=== PATIENT | female | born 1990 | race Caucasian/White ===

== ENCOUNTER 2016-09-05 14:58 | Emergency (ER) | payer MEDICAID ==
[~2016-09-05] VITALS: Ht 149.9 cm; Wt 76.0 kg
[~2016-09-05 14:58] MED LIST: IBUP-1222 PO; OXYC-302 PO
[2016-09-05] MEDS ORDERED: SODIUM CHLORIDE FLUSH 10ML SYR IVF ONE (15:30)
[2016-09-05] MEDS ORDERED: HYDROmorphone 1 MG/ML, 1ML IV ONE (15:30)
[2016-09-05] MEDS ORDERED: SODIUM CHLORIDE 0.9% 1,000ML IVBOLUS ONE (15:30)
[2016-09-05] MEDS ORDERED: ONDANSETRON 2MG/ML, 2ML IVPush ONE (15:30)
[2016-09-05] MEDS ORDERED: HYDROmorphone 1 MG/ML, 1ML ONE (16:20)
[2016-09-05] MEDS ORDERED: ONDANSETRON 2MG/ML, 2ML ONE (16:20)
[2016-09-05 16:40] LABS: BLOOD UREA NITROGEN 9 mg/dL (7-18)
[2016-09-05 18:16] VITALS: BP 110/61
== END 2016-09-05 18:41 | disposition home or self-care (01) ==
LOC: ED 18:20
DX: N83.291 Other ovarian cyst, right side (principal); Z88.6 Allergy status to analgesic agent
CPT/HCPCS: 36415; 76830; 80048; 81003; 82040; 84703; 85025; 96361; 96374; 96375; 99285; J1170; J2405; J7030

== ENCOUNTER 2017-02-18 19:33 | Emergency (ER) | payer MEDICAID ==
[~2017-02-18] VITALS: Ht 149.9 cm; Wt 76.4 kg
[2017-02-18 20:27] LABS: HEMATOCRIT 38.8 % (34.6-47.8); HEMOGLOBIN 13.2 g/dL (11.7-16.4); WHITE BLOOD COUNT 8.9 x10^3/uL (3.4-10)
[2017-02-18] MEDS ORDERED: PROMETHAZINE 25 MG/ML, 1ML IM ONE (20:30)
[2017-02-18] MEDS ORDERED: SODIUM CHLORIDE FLUSH 10ML SYR IVF ONE (20:30)
[2017-02-18] MEDS ORDERED: SODIUM CHLORIDE 0.9% 1,000ML IVBOLUS ONE (20:30)
[2017-02-18 20:33] LABS: ASPARTATE AMINO TRANSFERASE 13 U/L (15-37); BLOOD UREA NITROGEN 7 mg/dL (7-18)
[2017-02-18] MEDS ORDERED: PROMETHAZINE 25 MG/ML, 1ML ONE (20:46)
[2017-02-18 21:44] VITALS: BP 96/68
== END 2017-02-18 22:16 | disposition home or self-care (01) ==
LOC: ED 22:15
DX: O26.891 Other specified pregnancy related conditions, first trimester (principal); O21.0 Mild hyperemesis gravidarum; Z3A.01 Less than 8 weeks gestation of pregnancy
CPT/HCPCS: 36415; 80053; 85025; 96360; 96372; 99284; J2550; J7030

== ENCOUNTER 2017-02-23 00:54 | Emergency (ER) | payer MEDICAID ==
[~2017-02-23] VITALS: Ht 149.9 cm; Wt 76.9 kg
[2017-02-23 00:55] VITALS: BP 112/73
[2017-02-23] MEDS ORDERED: HYDROcodone/APAP 5/325 TABLET PO ONE (02:00)
[2017-02-23] MEDS ORDERED: KETOROLAC 30 MG/1 ML IM ONE (02:00)
[2017-02-23] MEDS ORDERED: HYDROcodone/APAP 5/325 TABLET ONE (02:05)
[2017-02-23] MEDS ORDERED: KETOROLAC 30 MG/1 ML ONE (02:05)
== END 2017-02-23 02:24 | disposition home or self-care (01) ==
LOC: ED 01:35
DX: K08.89 Other specified disorders of teeth and supporting structures (principal); Z87.891 Personal history of nicotine dependence
CPT/HCPCS: 96372; 99283; J1885

== ENCOUNTER 2017-02-26 17:38 | Emergency (ER) | payer MEDICAID ==
[~2017-02-26] VITALS: Ht 149.9 cm; Wt 75.3 kg
[2017-02-26 17:52] VITALS: BP 119/82
== END 2017-02-26 19:09 | disposition home or self-care (01) ==
LOC: ED 18:45
DX: K02.9 Dental caries, unspecified (principal); Z90.49 Acquired absence of other specified parts of digestive tract
CPT/HCPCS: 99283

== ENCOUNTER 2019-04-01 16:28 | Emergency (ER) | payer MEDICAID, OTHER ==
[~2019-04-01] VITALS: Ht 149.9 cm; Wt 83.9 kg
--- NOTE | 2019-04-01 16:54 | NUR ---
THIS IS A 28 YO F W/ C/O BODYACHES, FEVER, COUGH, DIARRHEA X2 DAYS. PATIENTS RESPIRATIONS ARE EVEN AND UNLABORED. PATIENT IS IN NO ACUTE DISTRESS. DENIES FURTHER NEEDS AT THIS TIME. CALL LIGHT IN REACH.
[2019-04-01] MEDS ORDERED: SODIUM CHLORIDE 0.9% 1,000 ML IV ONE (16:55)
[2019-04-01] MEDS ORDERED: ONDANSETRON 2MG/ML, 2ML IVPush ONE (17:00)
[2019-04-01] MEDS ORDERED: SODIUM CHLORIDE 0.9% 1,000ML IVBOLUS ONE (17:00)
[2019-04-01] MEDS ORDERED: SODIUM CHLORIDE FLUSH 10ML SYR IVF ONE (17:00)
--- NOTE | 2019-04-01 17:16 | NUR ---
PIV STARTED, LABS DRAWN, 1L NS STARTED PER EMAR. PATIENT RESTING ON GURNEY DENIES FURTHER NEEDS AT THIS TIME.
[2019-04-01 17:23] LABS: BASOPHILS # (AUTO) 0.01 x10^3/uL (0-0.1); BASOPHILS % (AUTO) 0 % (0-1); EOSINOPHILS # (AUTO) 0.04 x10^3/uL (0-0.4); EOSINOPHILS % (AUTO) 1 % (1-7); LYMPHOCYTES % (AUTO) 34 % (22-44); MD NO; MEAN CORPUSCULAR HEMOGLOBIN 30.7 pg (27.0-34.8); MEAN CORPUSCULAR VOLUME 90.3 fL (80-100); MEAN PLATELET VOLUME 8.5 fL (7.4-10.4); MONOCYTES % (AUTO) 8 % (2-9); NEUTROPHILS # (AUTO) 2.69 x10^3/uL (1.8-6.8); NEUTROPHILS % (AUTO) 57 % (42-75); PLATELET COUNT 196 x10^3/uL (130-400); RED BLOOD COUNT 4.89 x10^6/uL (3.82-5.3); RED CELL DISTRIBUTION WIDTH 12.7 % (9.6-15.2)
--- NOTE | 2019-04-01 17:25 | NUR ---
PATIENT DENIES NAUSEA. DOES NOT WANT ZOFRAN AT THIS TIME.
[2019-04-01 17:34] LABS: ALANINE AMINOTRANSFERASE 50 U/L (12-78); ANION GAP 6 mmol/L (5-15); CALCIUM 8.8 mg/dL (8.5-10.1); CHLORIDE 107 mmol/L (98-107)
[2019-04-01 17:36] LABS: ALKALINE PHOSPHATASE 99 U/L (45-117); BILIRUBIN,TOTAL 0.3 mg/dL (0.2-1.0); TOTAL PROTEIN 7.9 g/dL (6.4-8.2)
[2019-04-01 17:49] LABS: RAPID INFLUENZA A Negative (Negative); RAPID INFLUENZA B POSITIVE (Negative)
--- NOTE | 2019-04-01 18:17 | NUR ---
URINE COLLECTED AND SENT TO LAB. PT ATTEMPTED TO ALSO PROVIDE STOOL, HOWEVER, URINE WAS MIXED IN WITH A STOOL SAMPLE, WHICH WAS A VERY SCANT AMOUNT OF BLOOD MEASURING APPROX. 1/8 TEASPOON.
[2019-04-01 18:59] LABS: MICROSCOPIC NOT IND
--- NOTE | 2019-04-01 19:07 | NUR ---
REPORT FROM [facility]Z RN'S. PT PROVIDED BEDSIDE CAMMODE FOR STOOL SAMPLE.
[2019-04-01 19:16] LABS: CULTURE INDICATED? NO
--- NOTE | 2019-04-01 19:30 | NUR ---
STOOL COLLECTED AND WALKED TO THE LAB
[2019-04-01 19:56] VITALS: BP 120/76
--- NOTE | 2019-04-01 20:21 | NUR ---
Ashely auguste in ED - 04/01/19 at 2020 by DAVIS PT FOR RECHECK BY ERP
[2019-04-01 20:47] LABS: CLOSTRIDIUM DIFFICILE ANTIGEN NEGATIVE; CLOSTRIDIUM DIFFICILE TOXIN NEGATIVE (Negative)
== END 2019-04-01 20:35 | disposition home or self-care (01) ==
LOC: ED 20:15
DX: J10.1 Influenza due to other identified influenza virus with other respiratory manifestations (principal); K52.9 Noninfective gastroenteritis and colitis, unspecified; R11.2 Nausea with vomiting, unspecified; F17.200 Nicotine dependence, unspecified, uncomplicated
CPT/HCPCS: 36415; 80053; 81003; 85025; 87324; 87400; 89055; 96360; 96361; 99283; J7030

== ENCOUNTER 2019-10-16 19:24 | Emergency (ER) | payer MEDICAID ==
[~2019-10-16] VITALS: Ht 149.9 cm; Wt 91.0 kg
[2019-10-16 19:31] VITALS: BP 129/80
== END 2019-10-16 20:13 | disposition home or self-care (01) ==
LOC: ED 19:35
DX: K02.9 Dental caries, unspecified (principal)
CPT/HCPCS: 99283

== ENCOUNTER 2020-01-28 11:23 | Emergency (ER) | payer MEDICAID ==
[~2020-01-28] VITALS: Ht 149.9 cm; Wt 88.2 kg
[2020-01-28 12:37] LABS: BASOPHILS % (AUTO) 0 % (0-1); EOSINOPHILS % (AUTO) 2 % (1-7); LYMPHOCYTES % (AUTO) 28 % (22-44); MEAN CORPUSCULAR HEMOGLOBIN 30.5 pg (27.0-34.8); MEAN CORPUSCULAR HGB CONC 33.8 g/dL (32.4-35.8); MEAN PLATELET VOLUME 8.3 fL (7.4-10.4); MONOCYTES % (AUTO) 5 % (2-9); NEUTROPHILS % (AUTO) 65 % (42-75); PLATELET COUNT 289 x10^3/uL (130-400); RED BLOOD COUNT 5.11 x10^6/uL (3.82-5.3); RED CELL DISTRIBUTION WIDTH 12.6 % (9.6-15.2)
--- NOTE | 2020-01-28 12:37 | NUR ---
PT PRESENTS TO ED WITH C/O MIRACLE BLOOD PER RECTUM WITH BM THIS AM, ONLY ONCE. NO BLEEDING NOW. PT IS A&O, RESPS EVEN AND UNLABORED, NADN. PT INSTRUCTED TO PROVIDE CLEAN CATCH URINE, AMBULATORY TO BATHROOM WITH STEADY GAIT.
[2020-01-28 12:40] VITALS: BP 124/86
[2020-01-28 12:41] LABS: ANION GAP 6 mmol/L (5-15); CALCIUM 8.9 mg/dL (8.5-10.1); CHLORIDE 108 mmol/L (98-107); MD NO
[2020-01-28 12:45] LABS: ALANINE AMINOTRANSFERASE 51 U/L (12-78); ALKALINE PHOSPHATASE 102 U/L (45-117); BILIRUBIN,TOTAL 0.4 mg/dL (0.2-1.0); CREATININE 0.62 mg/dL (0.55-1.02); TOTAL PROTEIN 7.6 g/dL (6.4-8.2)
[2020-01-28 12:59] LABS: MICROSCOPIC NOT IND
== END 2020-01-28 13:42 | disposition home or self-care (01) ==
LOC: ED 13:20
DX: K62.5 Hemorrhage of anus and rectum (principal); R10.30 Lower abdominal pain, unspecified; I48.91 Unspecified atrial fibrillation; F17.210 Nicotine dependence, cigarettes, uncomplicated; Z90.89 Acquired absence of other organs
CPT/HCPCS: 36415; 80053; 81003; 85025; 99283; 99406